=== PATIENT | male | born 1955 | race Caucasian/White ===

== ENCOUNTER 2019-05-28 09:45 | Inpatient (IN) ==
[2019-05-28] MEDS ORDERED: MAGNESIUM SULF RIDER 2 GM in PREMIX 1 EACH IV PRN (10:06)
[2019-05-28] MEDS ORDERED: ZALEPLON 5 MG CAPSULE PO PRN (10:06)
[2019-05-28] MEDS ORDERED: MORPHINE 4 MG/1 ML VIAL IV PRN (10:06)
[2019-05-28] MEDS ORDERED: MAGNESIUM SULF RIDER 4 GM in PREMIX 1 EACH IV PRN (10:06)
[2019-05-28] MEDS ORDERED: DOCUSATE SODIUM 100 MG CAPSULE PO PRN (10:06)
[2019-05-28] MEDS ORDERED: BISACODYL 5 MG TABLET PO PRN (10:06)
[2019-05-28] MEDS ORDERED: ACETAMINOPHEN 325 MG TABLET PO PRN (10:06)
[2019-05-28] MEDS ORDERED: ONDANSETRON 4 MG/2 ML VIAL IV PRN (10:06)
[2019-05-28] MEDS ORDERED: diphenhydrAMINE CAP 25 MG CAPSULE PO PRN (10:06)
[2019-05-28] MEDS ORDERED: ENOXAPARIN 40 MG/0.4 ML SYRINGE SUBCUT SCH (10:30)
[2019-05-28 15:39] LABS: Apearance,Urine CLEAR (Clear); Bilirubin,Urine Negative (Negative); Blood, Urine Small mg/dL (Negative); Glucose,Urine (UA) Negative (Negative); Hyaline Casts,Urine 5 /LPF (0-3); Ketones,Urine Negative (Negative); Mucus,Urine Occasional /LPF (Occasional); Nitrite,Urine Negative (Negative); Protein,Urine Negative; RBC,Urine 25 /HPF (0-4); Urine Color Yellow (Yellow); Urine Specific Gravity 1.012 (1.001-1.035); Urine Urobilinogen < 2.0 EU/DL (0.2-1.0); WBC,Urine 5 /HPF (0-6)
[2019-05-28 16:08] LABS: Basophils # 0.1 10*3/uL (0.0-0.2); Basophils % 0.7 % (0.0-0.8); Eosinophils # 0.1 10*3/uL (0.0-0.87); Eosinophils % 0.4 % (0.00-10.9); Hematocrit 46.5 VOL% (42.0-52.0); Hemoglobin 15.2 GM/DL (14.0-18.0); Immature Granulocytes % 0.8 %; Immature Granulocytes Absolute 0.11 #; Lymphocytes # 1.4 10*3/uL (1.4-4.0); Lymphocytes % 10.6 % (21.2-54.2); Mean Corpuscular HGB Conc 32.7 GM/DL (32-36); Mean Corpuscular Volume 101.3 FL (87-102); Monocytes % 10.5 % (1.7-12.7); Platelet Count 180 T/CUMM (130-400); Red Blood Count 4.59 MC/CUMM (3.8-5.5); Red Cell Distribution Width 13.4 % (9.3-17.3); White Blood Count 13.3 T/CUMM (4-12)
[2019-05-28] MEDS ORDERED: TRIAMCINOLONE 0.1% OINT 15 GM TUBE TOP PRN (16:20)
[2019-05-28 16:26] LABS: Calcium 9.1 MG/DL (8.5-10.1); Osmolality,Calculated 275.8 MOS/KG (273-304)
[2019-05-28] MEDS: INSULIN REGULAR 100 UNIT/ML SUBCUT SCH ×2 (17:13→20:35)
[2019-05-28] MEDS: SULFAMETHOX/TRIMETHOPRIM 800-160 MG TABLET PO SCH (17:33)
[2019-05-28] MEDS: ASPIRIN EC 81 MG TABLET PO SCH (17:34)
[2019-05-28] MEDS: BISOPROLOL 5 MG TABLET PO SCH (17:34)
[2019-05-28] MEDS: traZODone 50 MG TABLET PO SCH (20:40)
[2019-05-28] MEDS: MYCOPHENOLATE MOFETIL 250 MG CAPSULE PO SCH (20:41)
[2019-05-28] MEDS: CITALOPRAM 20 MG TABLET PO SCH (20:44)
[2019-05-28] MEDS: MAGNESIUM OXIDE 400 MG TABLET PO SCH (20:44)
[2019-05-28] MEDS: metFORMIN 500 MG TABLET PO SCH (20:44)
[2019-05-28] MEDS: APIXABAN 5 MG TABLET PO SCH (20:45)
[2019-05-28] MEDS: SIMVASTATIN 20 MG TABLET PO SCH (20:45)
[2019-05-28] MEDS: DILTIAZEM CD 180 MG CAPSULE PO SCH (20:45)
[2019-05-28] MEDS ORDERED: DILTIAZEM CD 180 MG CAPSULE PO SCH (21:00)
[2019-05-29] MEDS: SULFAMETHOX/TRIMETHOPRIM 800-160 MG TABLET PO SCH ×2 (04:23→17:41)
[2019-05-29 06:54] LABS: Basophils # 0.1 10*3/uL (0.0-0.2); Basophils % 0.7 % (0.0-0.8); Eosinophils # 0.1 10*3/uL (0.0-0.87); Eosinophils % 0.8 % (0.00-10.9); Hematocrit 42.3 VOL% (42.0-52.0); Hemoglobin 13.8 GM/DL (14.0-18.0); Immature Granulocytes % 0.9 %; Immature Granulocytes Absolute 0.09 #; Lymphocytes # 1.7 10*3/uL (1.4-4.0); Lymphocytes % 17.5 % (21.2-54.2); Mean Corpuscular HGB Conc 32.6 GM/DL (32-36); Mean Corpuscular Volume 102.2 FL (87-102); Mean Platelet Volume 11.7 FL (9.6-12.0); Monocytes % 8.3 % (1.7-12.7); Neutrophils % 71.8 % (38.7-73.9); Platelet Count 159 T/CUMM (130-400); Red Blood Count 4.14 MC/CUMM (3.8-5.5); Red Cell Distribution Width 13.5 % (9.3-17.3)
[2019-05-29 07:25] LABS: Albumin 2.6 G/DL (3.4-5.0); Bilirubin,Total 0.8 MG/DL (0.2-1.0); Calcium 8.7 MG/DL (8.5-10.1); Osmolality,Calculated 275.8 MOS/KG (273-304); Risk Ratio 3.14; Total Protein 6.7 G/DL (6.4-8.3); VLDL CHOLESTEROL 27.4 MG/DL
[2019-05-29] MEDS: MYCOPHENOLATE MOFETIL 250 MG CAPSULE PO SCH ×2 (09:14→21:26)
[2019-05-29] MEDS: CITALOPRAM 20 MG TABLET PO SCH ×2 (09:15→21:27)
[2019-05-29] MEDS: metFORMIN 500 MG TABLET PO SCH ×2 (09:15→21:26)
[2019-05-29] MEDS: APIXABAN 5 MG TABLET PO SCH ×2 (09:17→21:27)
[2019-05-29] MEDS: ISOSORBIDE MONONITRATE 60 MG TABLET PO SCH ×2 (09:17)
[2019-05-29] MEDS: MULTIVITAMIN (CENTRUM) TABLET PO SCH (09:18)
[2019-05-29] MEDS: CHOLECALCIFEROL 2000 UNIT PO SCH (09:18)
[2019-05-29] MEDS: glyBURIDE 2.5 MG TABLET PO SCH (09:18)
[2019-05-29] MEDS: CALCIUM (CARBONATE)/VITAMIN D 600 MG-400 UNIT TABLET PO SCH (09:19)
[2019-05-29] MEDS: DILTIAZEM CD 180 MG CAPSULE PO SCH (09:20)
[2019-05-29] MEDS: LORATADINE 10 MG TABLET PO SCH (09:21)
[2019-05-29] MEDS: TAMSULOSIN 0.4 MG CAPSULE PO SCH (09:21)
[2019-05-29] MEDS: BISOPROLOL 5 MG TABLET PO SCH (09:21)
[2019-05-29] MEDS: predniSONE 10 MG TABLET PO SCH (09:21)
[2019-05-29] MEDS: ASPIRIN EC 81 MG TABLET PO SCH (09:22)
[2019-05-29] MEDS: MAGNESIUM OXIDE 400 MG TABLET PO SCH ×2 (09:22→21:26)
[2019-05-29] MEDS: PANTOPRAZOLE 40 MG TABLET PO SCH (09:22)
[2019-05-29] MEDS: INSULIN REGULAR 100 UNIT/ML SUBCUT SCH ×4 (10:57→23:00)
[2019-05-29] MEDS: SIMVASTATIN 20 MG TABLET PO SCH (21:27)
[2019-05-29] MEDS: traZODone 50 MG TABLET PO SCH (21:27)
[2019-05-30] MEDS: SULFAMETHOX/TRIMETHOPRIM 800-160 MG TABLET PO SCH ×2 (05:39→17:09)
[2019-05-30 05:48] LABS: Basophils % 0.4 % (0.0-0.8); Eosinophils % 0.3 % (0.00-10.9); Hematocrit 39.6 VOL% (42.0-52.0); Hemoglobin 13.5 GM/DL (14.0-18.0); Immature Granulocytes % 0.9 %; Immature Granulocytes Absolute 0.09 #; Lymphocytes # 1.2 10*3/uL (1.4-4.0); Lymphocytes % 11.8 % (21.2-54.2); Mean Corpuscular HGB Conc 34.1 GM/DL (32-36); Mean Platelet Volume 11.8 FL (9.6-12.0); Monocytes % 10.4 % (1.7-12.7); Neutrophils % 76.2 % (38.7-73.9); Platelet Count 156 T/CUMM (130-400); Red Blood Count 3.96 MC/CUMM (3.8-5.5)
[2019-05-30 06:14] LABS: Albumin 2.6 G/DL (3.4-5.0); Bilirubin,Total 0.6 MG/DL (0.2-1.0); Total Protein 6.8 G/DL (6.4-8.3)
[2019-05-30] MEDS ORDERED: predniSONE 10 MG TABLET PO SCH (09:00)
[2019-05-30] MEDS: INSULIN REGULAR 100 UNIT/ML SUBCUT SCH ×4 (09:09→21:07)
[2019-05-30] MEDS: CALCIUM (CARBONATE)/VITAMIN D 600 MG-400 UNIT TABLET PO SCH (09:10)
[2019-05-30] MEDS: MYCOPHENOLATE MOFETIL 250 MG CAPSULE PO SCH ×2 (09:10→21:08)
[2019-05-30] MEDS: CHOLECALCIFEROL 2000 UNIT PO SCH (09:11)
[2019-05-30] MEDS: MAGNESIUM OXIDE 400 MG TABLET PO SCH ×2 (09:11→21:08)
[2019-05-30] MEDS: metFORMIN 500 MG TABLET PO SCH ×2 (09:11→21:08)
[2019-05-30] MEDS: ISOSORBIDE MONONITRATE 60 MG TABLET PO SCH ×2 (09:12→09:13)
[2019-05-30] MEDS: PANTOPRAZOLE 40 MG TABLET PO SCH (09:13)
[2019-05-30] MEDS: ASPIRIN EC 81 MG TABLET PO SCH (09:13)
[2019-05-30] MEDS: LORATADINE 10 MG TABLET PO SCH (09:13)
[2019-05-30] MEDS: CITALOPRAM 20 MG TABLET PO SCH ×2 (09:13→21:09)
[2019-05-30] MEDS: MULTIVITAMIN (CENTRUM) TABLET PO SCH (09:14)
[2019-05-30] MEDS: TAMSULOSIN 0.4 MG CAPSULE PO SCH (09:14)
[2019-05-30] MEDS: DILTIAZEM CD 180 MG CAPSULE PO SCH (09:14)
[2019-05-30] MEDS: APIXABAN 5 MG TABLET PO SCH ×2 (09:14→21:08)
[2019-05-30] MEDS: glyBURIDE 2.5 MG TABLET PO SCH (09:19)
[2019-05-30] MEDS: BISOPROLOL 5 MG TABLET PO SCH (10:04)
[2019-05-30] MEDS: traZODone 50 MG TABLET PO SCH (21:08)
[2019-05-30] MEDS: SIMVASTATIN 20 MG TABLET PO SCH (21:09)
[2019-05-31] MEDS: SULFAMETHOX/TRIMETHOPRIM 800-160 MG TABLET PO SCH (05:37)
[2019-05-31 05:39] LABS: Basophils # 0.1 10*3/uL (0.0-0.2); Basophils % 0.6 % (0.0-0.8); Eosinophils % 0.4 % (0.00-10.9); Hemoglobin 13.3 GM/DL (14.0-18.0); Immature Granulocytes % 0.7 %; Immature Granulocytes Absolute 0.06 #; Lymphocytes # 1.2 10*3/uL (1.4-4.0); Lymphocytes % 13.6 % (21.2-54.2); Mean Corpuscular HGB Conc 33.3 GM/DL (32-36); Monocytes % 10.7 % (1.7-12.7); Platelet Count 172 T/CUMM (130-400); Red Blood Count 3.96 MC/CUMM (3.8-5.5); Red Cell Distribution Width 12.9 % (9.3-17.3); White Blood Count 8.9 T/CUMM (4-12)
[2019-05-31 06:04] LABS: Alanine Aminotransferase 19 U/L (16-61); Albumin 2.6 G/DL (3.4-5.0); Alkaline Phosphatase 44 U/L (45-117); Aspartate Amino Transferase 18 U/L (0-37); Bilirubin,Total < 0.39 MG/DL (0.2-1.0); Blood Urea Nitrogen 19 MG/DL (7-18); Calcium 8.7 MG/DL (8.5-10.1); Glucose 69 MG/DL (74-106); Osmolality,Calculated 280.3 MOS/KG (273-304); Total Protein 6.5 G/DL (6.4-8.3)
[2019-05-31 08:14] VITALS: BP 129/74
[2019-05-31] MEDS ORDERED: ASCORBIC ACID 500 MG TABLET PO SCH (09:00)
[2019-05-31] MEDS: MYCOPHENOLATE MOFETIL 250 MG CAPSULE PO SCH (09:21)
[2019-05-31] MEDS: ISOSORBIDE MONONITRATE 60 MG TABLET PO SCH ×2 (09:21)
[2019-05-31] MEDS: CHOLECALCIFEROL 2000 UNIT PO SCH (09:21)
[2019-05-31] MEDS: CALCIUM (CARBONATE)/VITAMIN D 600 MG-400 UNIT TABLET PO SCH (09:22)
[2019-05-31] MEDS: BISOPROLOL 5 MG TABLET PO SCH (09:22)
[2019-05-31] MEDS: glyBURIDE 2.5 MG TABLET PO SCH (09:22)
[2019-05-31] MEDS: CITALOPRAM 20 MG TABLET PO SCH (09:22)
[2019-05-31] MEDS: MAGNESIUM OXIDE 400 MG TABLET PO SCH (09:22)
[2019-05-31] MEDS: metFORMIN 500 MG TABLET PO SCH (09:22)
[2019-05-31] MEDS: TAMSULOSIN 0.4 MG CAPSULE PO SCH (09:23)
[2019-05-31] MEDS: DILTIAZEM CD 180 MG CAPSULE PO SCH (09:23)
[2019-05-31] MEDS: LORATADINE 10 MG TABLET PO SCH (09:23)
[2019-05-31] MEDS: APIXABAN 5 MG TABLET PO SCH (09:23)
[2019-05-31] MEDS: predniSONE 10 MG TABLET PO SCH (09:23)
[2019-05-31] MEDS: PANTOPRAZOLE 40 MG TABLET PO SCH (09:23)
[2019-05-31] MEDS: MULTIVITAMIN (CENTRUM) TABLET PO SCH (09:23)
[2019-05-31] MEDS: ASPIRIN EC 81 MG TABLET PO SCH (09:24)
[2019-05-31] MEDS: INSULIN REGULAR 100 UNIT/ML SUBCUT SCH (09:24)
== END 2019-05-31 10:40 | disposition home or self-care (01) | DRG 309 ==
LOC: N.TELEN
PROVIDERS: ADMIT Internal Medicine Cardiovascular Disease; ATTEND Internal Medicine Cardiovascular Disease